=== PATIENT | female | born 2000 | race Caucasian/White ===

== ENCOUNTER 2023-01-15 17:14 | Emergency (ER) | payer OTHER ==
[~2023-01-15] VITALS: Ht 162.6 cm; Wt 91.1 kg
[2023-01-15] MEDS ORDERED: NS 1,000 ML IV ONE (21:05)
[2023-01-15] MEDS ORDERED: KETOROLAC 30 MG/ML 1ML VIAL IV ONE (21:05)
[2023-01-15] MEDS ORDERED: ONDANSETRON 4MG 2ML VIAL IV ONE (21:05)
[2023-01-15 22:02] LABS: BASO % 0.5 % (0.0-1.0); EOS # 0.1 10^3/uL (0.0-0.5); EOS % 1.5 % (0.0-3.0); HEMATOCRIT 41.9 % (36.0-47.0); HEMOGLOBIN 13.5 g/dl (12.0-15.5); LYMPH # 2.3 10^3/uL (1.5-5.0); LYMPH % 31.8 % (24.0-44.0); MEAN CORPUSCULAR HEMOGLOBIN 29.5 pg (27.0-33.0); MEAN CORPUSCULAR HGB CONC 32.2 g/dl (32.0-36.5); MEAN CORPUSCULAR VOLUME 91.5 fl (80.0-96.0); MONO # 0.8 10^3/uL (0.0-0.8); MONO % 10.8 % (2.0-8.0); NEUTROPHILS # 4.1 10^3/uL (1.5-8.5); NEUTROPHILS % 55.3 % (36.0-66.0); PLATELET COUNT, AUTOMATED 273 10^3/uL (150-450); RED BLOOD COUNT 4.58 10^6/uL (4.00-5.40); WHITE BLOOD COUNT 7.3 10^3/uL (4.0-10.0)
[2023-01-15 22:27] LABS: BILIRUBIN,DIRECT 0.1 MG/DL (<0.4); BILIRUBIN,TOTAL 0.4 MG/DL (0.3-1.2); TOTAL PROTEIN 6.7 G/DL (5.7-8.2)
[2023-01-15] MEDS ORDERED: ONDA4TAB6 PO (23:04)
[2023-01-15 23:22] VITALS: BP 109/58
== END 2023-01-15 23:39 | disposition home or self-care (01) ==
LOC: M ED 17:14
DX: R10.9 Unspecified abdominal pain (principal); R42 Dizziness and giddiness; R11.0 Nausea; Z79.83 Long term (current) use of bisphosphonates
CPT/HCPCS: 80047; 80076; 81001; 83690; 84702; 85025; 96374; 96375; 99284; J1885; J2405

== ENCOUNTER 2023-01-26 23:04 | Emergency (ER) | payer OTHER ==
[~2023-01-26] VITALS: Ht 162.6 cm; Wt 92.6 kg
[~2023-01-26 23:04] MED LIST: ONDA4TAB6 PO
[2023-01-26 23:05] VITALS: BP 120/67
== END 2023-01-27 04:36 | disposition left against medical advice (07) ==
LOC: M ED 23:04
DX: Z53.21 Procedure and treatment not carried out due to patient leaving prior to being seen by health care provider (principal)

== ENCOUNTER 2023-01-27 17:52 | Emergency (ER) | payer OTHER ==
[~2023-01-27] VITALS: Ht 160 cm; Wt 92.5 kg
[2023-01-27 23:15] VITALS: BP 134/85
== END 2023-01-27 23:23 | disposition left against medical advice (07) ==
LOC: M ED 17:52
DX: Z53.21 Procedure and treatment not carried out due to patient leaving prior to being seen by health care provider (principal)

== ENCOUNTER → 2023-01-29 | Outpatient (CLI) | payer OTHER | LOC: M WUC 13:11 | PROVIDERS: ATTEND Nurse Practitioner Family | DX: S46.011A Strain of muscle(s) and tendon(s) of the rotator cuff of right shoulder, initial encounter (principal); X58.XXXA Exposure to other specified factors, initial encounter; Y92.9 Unspecified place or not applicable ==

== ENCOUNTER 2023-02-16 17:48 | Emergency (ER) | payer OTHER ==
[~2023-02-16] VITALS: Ht 162.6 cm; Wt 93.7 kg
[2023-02-16 17:50] VITALS: BP 121/78; TEMP 97.5; O2SAT 98
== END 2023-02-16 19:35 | disposition left against medical advice (07) ==
LOC: M ED 17:48
DX: Z53.21 Procedure and treatment not carried out due to patient leaving prior to being seen by health care provider (principal)

== ENCOUNTER 2023-02-25 12:44 | Emergency (ER) | payer OTHER ==
[~2023-02-25] VITALS: Ht 162.6 cm; Wt 94.1 kg
[2023-02-25 12:45] VITALS: BP 158/62; TEMP 98.3; O2SAT 99
== END 2023-02-25 13:45 | disposition home or self-care (01) ==
LOC: M ED 12:44
DX: Z32.01 Encounter for pregnancy test, result positive (principal); J45.909 Unspecified asthma, uncomplicated; Z79.83 Long term (current) use of bisphosphonates

== ENCOUNTER 2023-04-01 17:16 | Emergency (ER) | payer OTHER ==
[~2023-04-01] VITALS: Ht 160 cm; Wt 96.0 kg
[2023-04-01 17:18] VITALS: BP 132/88; TEMP 97.8; O2SAT 98
== END 2023-04-01 21:07 | disposition home or self-care (01) ==
LOC: M ED 17:16
DX: Z32.02 Encounter for pregnancy test, result negative (principal)

== ENCOUNTER 2024-02-01 12:13 | Emergency (ER) | payer OTHER ==
[~2024-02-01] VITALS: Ht 160 cm; Wt 99.0 kg
[2024-02-01 12:13] VITALS: BP 131/79; TEMP 97.9; O2SAT 97
[2024-02-01 15:32] LABS: HCG, SERUM QUALITATIVE NEGATIVE (NEGATIVE)
== END 2024-02-01 16:48 | disposition home or self-care (01) ==
LOC: M ED 12:13
DX: N94.0 Mittelschmerz (principal)

== ENCOUNTER 2024-06-13 13:48 | Emergency (ER) | payer OTHER ==
[~2024-06-13] VITALS: Ht 160 cm; Wt 103.8 kg
[~2024-06-13 13:48] MED LIST changes: +ONDA-282 PO; -ONDA4TAB6 PO
[2024-06-13] MEDS ORDERED: PYRI1TAB5 PO (18:29)
[2024-06-13] MEDS ORDERED: MACR100C43 PO (18:29)
[2024-06-13 18:32] VITALS: BP 114/71; TEMP 98.2; O2SAT 98
== END 2024-06-13 18:39 | disposition home or self-care (01) ==
LOC: M ED 13:48
DX: N39.0 Urinary tract infection, site not specified (principal); Z79.899 Other long term (current) drug therapy

== ENCOUNTER 2024-07-24 20:51 | Emergency (ER) | payer OTHER ==
[~2024-07-24] VITALS: Ht 160 cm; Wt 104.6 kg
[~2024-07-24 20:51] MED LIST changes: +MACR100C43 PO; +PYRI1TAB5 PO
[2024-07-24 20:53] VITALS: BP 160/94; TEMP 97.3; O2SAT 99
[2024-07-24 21:19] LABS: URINE PREG TEST NEGATIVE (NEGATIVE)
[2024-07-24 21:30] LABS: BASO # 0.1 10^3/uL (0.0-0.2); BASO % 0.6 % (0.0-1.0); EOS # 0.1 10^3/uL (0.0-0.5); EOS % 0.6 % (0.0-3.0); HEMATOCRIT 42.7 % (36.0-47.0); HEMOGLOBIN 14.4 g/dl (12.0-15.5); LYMPH # 2.2 10^3/uL (1.5-5.0); LYMPH % 23.8 % (24.0-44.0); MEAN CORPUSCULAR HEMOGLOBIN 29.2 pg (27.0-33.0); MEAN CORPUSCULAR HGB CONC 33.7 g/dl (32.0-36.5); MEAN CORPUSCULAR VOLUME 86.6 fl (80.0-96.0); MONO # 0.7 10^3/uL (0.0-0.8); MONO % 7.8 % (2.0-8.0); NEUTROPHILS # 6.3 10^3/uL (1.5-8.5); NEUTROPHILS % 66.9 % (36.0-66.0); PLATELET COUNT, AUTOMATED 328 10^3/uL (150-450); RED BLOOD COUNT 4.93 10^6/uL (4.00-5.40); WHITE BLOOD COUNT 9.4 10^3/uL (4.0-10.0)
[2024-07-24 21:58] LABS: ALBUMIN 4.1 G/DL (3.2-5.2); BILIRUBIN,DIRECT 0.2 MG/DL (<0.4); BILIRUBIN,TOTAL 0.6 MG/DL (0.3-1.2); TOTAL PROTEIN 7.7 G/DL (5.7-8.2)
[2024-07-24] MEDS: ONDANSETRON 4MG 2ML VIAL IV ONE (22:16)
[2024-07-24] MEDS: FAMOTIDINE 20MG/2ML VIAL IVP ONE (22:16)
[2024-07-24] MEDS ORDERED: PEPC1TAB5 PO (23:13)
[2024-07-24] MEDS ORDERED: ONDA-282 PO (23:13)
== END 2024-07-24 23:17 | disposition home or self-care (01) ==
LOC: M ED 20:51
DX: A08.4 Viral intestinal infection, unspecified (principal); Z79.83 Long term (current) use of bisphosphonates; Z79.899 Other long term (current) drug therapy
CPT/HCPCS: 80047; 80076; 81001; 83690; 84703; 85025; 87486; 87581; 87633; 87798; 96374; 99284; J2405; S0028